=== PATIENT | male | born 1995 | race Caucasian/White ===

== ENCOUNTER → 2017-09-15 | Outpatient (CLI) | payer OTHER ==
--- NOTE | 2017-09-15 20:51 | DIAGNOSTIC IMAGING REPORT ---
RIBS UNILATERAL WITH PA CHEST CLINICAL HISTORY: Left anterior rib pain following fall. COMPARISON STUDY: Chest radiograph April 30, 2009. FINDINGS: Please note that a dedicated chest radiograph was not obtained. There is no pneumothorax. No acute left rib fracture is identified by radiography. Left lung is clear. No airspace opacities identified. Subtle irregularity of the anterior left sixth rib is probably artifactual. IMPRESSION: No pneumothorax. Equivocal nondisplaced anterior left sixth rib fracture which is likely artifactual. Electronically signed by: Genaro Felix M.D. 09/15/2017 8:49 PM Dictated Date/Time: 09/15/2017 8:46 PM
--- NOTE | 2017-09-15 20:52 | DIAGNOSTIC IMAGING REPORT ---
L HEEL MIN 2 VIEWS CLINICAL HISTORY: Left heel pain following injury. COMPARISON: None FINDINGS: No left calcaneal fracture is identified. Alignment of the subtalar joint appears anatomic. IMPRESSION: No acute fracture of the left calcaneus. Electronically signed by: Genaro Felix M.D. 09/15/2017 8:50 PM Dictated Date/Time: 09/15/2017 8:50 PM
== END | disposition home or self-care (01) ==
LOC: C.RAD 19:49
PROVIDERS: ATTEND Family Medicine
DX: M79.672 Pain in left foot (principal); R07.9 Chest pain, unspecified; S22.32XA Fracture of one rib, left side, initial encounter for closed fracture; W19.XXXA Unspecified fall, initial encounter